=== PATIENT | male | born 1935 | race Hispanic/Latino ===

== ENCOUNTER 2017-11-26 14:46 | Inpatient (IN) | payer MEDICARE ==
[~2017-11-26] VITALS: Ht 172.7 cm; Wt 111.1 kg
[2017-11-26 16:24] VITALS: BP 135/60
[2017-11-26] MEDS ORDERED: TAMS0.4C32 PO (18:33)
[2017-11-26] MEDS ORDERED: d3 PO (18:33)
[2017-11-26] MEDS ORDERED: ISOS30TA6 PO (18:33)
[2017-11-26] MEDS ORDERED: NITR.4 SL (18:33)
[2017-11-26] MEDS ORDERED: CILO100T PO (18:33)
[2017-11-26] MEDS ORDERED: FURO40TA5 PO (18:33)
[2017-11-26] MEDS ORDERED: PRAV40TA3 PO (18:33)
[2017-11-26] MEDS ORDERED: POTA20TA12 PO (18:33)
[2017-11-26] MEDS ORDERED: METO-408 PO (18:33)
[2017-11-26 19:00] VITALS: BP 146/52
[2017-11-26] MEDS ORDERED: TICAGRELOR 90 MG TABLET PO SCH ×3 (19:00→19:30)
[2017-11-26] MEDS ORDERED: SIMETHICONE 80 MG TAB.CHEW ONE (19:45)
[2017-11-26] MEDS: LISINOPRIL 5 MG TABLET PO SCH (19:48)
[2017-11-26] MEDS: ASPIRIN 81 MG EC TAB PO SCH (19:48)
[2017-11-26] MEDS: ATORVASTATIN CALCIUM 20 MG TABLET PO SCH (19:48)
[2017-11-26] MEDS: METOPROLOL TARTRATE 25 MG TAB PO SCH (19:48)
[2017-11-26] MEDS: SIMETHICONE 80 MG TAB.CHEW PO SCH (19:48)
[2017-11-26] MEDS ORDERED: ENOXAPARIN SODIUM 100 MG/1 ML SQ SCH (21:00)
[2017-11-26 23:00] VITALS: BP 133/63
[2017-11-27] VITALS (12 sets, daily range): BP systolic 109–145; BP diastolic 47–67
[2017-11-27 04:13] LABS: BASOPHILS % (AUTO) 0.5 % (0.0-5.0); EOSINOPHILS % (AUTO) 0.6 % (0.0-8.0); HEMATOCRIT 25.7 % (42-54); LYMPHOCYTES % (AUTO) 8.7 % (21.0-51.0); MEAN CORPUSCULAR HEMOGLOBIN 32.7 pg (27.0-33.0); MEAN CORPUSCULAR HGB CONC 33.9 g/dL (32.0-36.0); MEAN CORPUSCULAR VOLUME 96.4 fL (79-99); MONOCYTES % (AUTO) 9.8 % (3.0-13.0); NEUTROPHILS % (AUTO) 80.4 % (40.0-77.0); NUCLEATED RED BLOOD CELLS 0.1 % (0.0-0.19); PLATELET COUNT (AUTO) 177 K/uL (130-400); RED BLOOD CELL COUNT(AUTO) 2.66 MIL/uL (4.50-6.20); RED CELL DISTRIBUTION WIDTH 15.4 % (11.0-15.5); WHITE BLOOD COUNT (AUTO) 9.2 K/uL (4.8-10.8)
[2017-11-27 04:50] LABS: ALBUMIN 2.5 g/dL (3.5-5.0); BILIRUBIN,TOTAL 0.8 mg/dL (0.2-1.0); CREATININE 1.8 mg/dL (0.5-1.5); POTASSIUM 3.7 mmol/L (3.5-5.1); TOTAL PROTEIN, SERUM 6.9 g/dL (6.0-8.3)
[2017-11-27] MEDS: SIMETHICONE 80 MG TAB.CHEW PO SCH ×4 (09:00→21:16)
[2017-11-27] MEDS ORDERED: BIVALIRUDIN 250 MG/VIAL IV ONE (12:02)
[2017-11-27] MEDS ORDERED: ISOVUE-370 50ML VIAL IV ONE (12:02)
[2017-11-27] MEDS ORDERED: LIDOCAINE HCL 2% 20ML ONE (12:02)
[2017-11-27] MEDS ORDERED: HEPARIN SODIUM 1000UNIT/ML 10ML VIAL ONE (12:02)
[2017-11-27] MEDS ORDERED: IOPAMIDOL-370 100 ML VIAL IV ONE (12:02)
[2017-11-27] MEDS ORDERED: SODIUM CHLORIDE 0.9% 1000ML 1,000 ML IV SCH (13:15)
[2017-11-27] MEDS: LISINOPRIL 5 MG TABLET PO SCH ×2 (14:26→21:00)
[2017-11-27] MEDS: ASPIRIN 81 MG EC TAB PO SCH (14:26)
[2017-11-27] MEDS: FUROSEMIDE 40 MG TABLET PO SCH ×2 (14:27→17:17)
[2017-11-27] MEDS: METOPROLOL TARTRATE 25 MG TAB PO SCH ×2 (14:27→21:16)
[2017-11-27] MEDS: ATORVASTATIN CALCIUM 20 MG TABLET PO SCH (21:16)
[2017-11-28] VITALS (20 sets, daily range): BP systolic 111–144; BP diastolic 42–62
[2017-11-28 04:14] LABS: HEMATOCRIT 25.5 % (42-54); MEAN CORPUSCULAR HGB CONC 33.9 g/dL (32.0-36.0); MEAN CORPUSCULAR VOLUME 97.3 fL (79-99); NUCLEATED RED BLOOD CELLS 0.1 % (0.0-0.19); PLATELET COUNT (AUTO) 182 K/uL (130-400); RED BLOOD CELL COUNT(AUTO) 2.62 MIL/uL (4.50-6.20); RED CELL DISTRIBUTION WIDTH 15.7 % (11.0-15.5); WHITE BLOOD COUNT (AUTO) 8.2 K/uL (4.8-10.8)
[2017-11-28 04:25] LABS: CREATININE 1.7 mg/dL (0.5-1.5); POTASSIUM 3.3 mmol/L (3.5-5.1)
[2017-11-28] MEDS ORDERED: PROPOFOL 10 MG/ML 20ML VIAL IV ONE (10:43)
[2017-11-28] MEDS ORDERED: MIDAZOLAM HCL 1 MG/ML 2ML VIAL ONE (10:43)
[2017-11-28] MEDS: FUROSEMIDE 40 MG TABLET PO SCH ×2 (14:20→16:44)
[2017-11-28] MEDS: METOPROLOL TARTRATE 25 MG TAB PO SCH ×2 (14:21→20:34)
[2017-11-28] MEDS: LISINOPRIL 5 MG TABLET PO SCH ×2 (14:21→21:00)
[2017-11-28] MEDS: ASPIRIN 81 MG EC TAB PO SCH (14:21)
[2017-11-28] MEDS: SIMETHICONE 80 MG TAB.CHEW PO SCH ×3 (14:27→20:34)
[2017-11-28] MEDS: PANTOPRAZOLE SODIUM 40 MG TABLET.DR PO SCH (14:28)
[2017-11-28] MEDS: ATORVASTATIN CALCIUM 20 MG TABLET PO SCH (20:34)
[2017-11-29 03:42] VITALS: BP 112/46
[2017-11-29] MEDS: PANTOPRAZOLE SODIUM 40 MG TABLET.DR PO SCH (06:37)
[2017-11-29 07:09] VITALS: BP 123/54
[2017-11-29] MEDS: SIMETHICONE 80 MG TAB.CHEW PO SCH ×3 (09:00→17:00)
[2017-11-29] MEDS: METOPROLOL TARTRATE 25 MG TAB PO SCH ×2 (09:14→21:00)
[2017-11-29] MEDS: ASPIRIN 81 MG EC TAB PO SCH (09:14)
[2017-11-29] MEDS: FUROSEMIDE 40 MG TABLET PO SCH ×2 (09:14→16:59)
[2017-11-29] MEDS: LISINOPRIL 5 MG TABLET PO SCH ×2 (09:15→21:00)
[2017-11-29 11:04] VITALS: BP 114/52
[2017-11-29 16:20] VITALS: BP 106/41
[2017-11-29 19:00] VITALS: BP 97/43
[2017-11-29] MEDS: ATORVASTATIN CALCIUM 20 MG TABLET PO SCH (19:53)
[2017-11-29 23:01] VITALS: BP 108/41
[2017-11-30] VITALS (17 sets, daily range): BP systolic 86–129; BP diastolic 38–54
[2017-11-30] MEDS: PANTOPRAZOLE SODIUM 40 MG TABLET.DR PO SCH (05:48)
[2017-11-30] MEDS: METOPROLOL TARTRATE 25 MG TAB PO SCH (09:00)
[2017-11-30] MEDS ORDERED: THROMBIN-JMI 5000 UNIT/VIAL TP ONE (13:19)
[2017-11-30] MEDS ORDERED: HEPARIN SODIUM 1000UNIT/ML 10ML VIAL ONE ×2 (13:19→16:22)
[2017-11-30] MEDS ORDERED: PAPAVERINE HCL 30 MG/ML 2ML VIAL ONE (13:26)
[2017-11-30] MEDS ORDERED: NITROGLYCERIN 50 MG/D5% WATER 1 BOT ONE (13:26)
[2017-11-30] MEDS ORDERED: OCTYL 2-CYANOACRYLATE 1 EACH TP ONE (13:26)
[2017-11-30 13:27] LABS: HEMATOCRIT 24.9 % (42-54); MEAN CORPUSCULAR HEMOGLOBIN 34.9 pg (27.0-33.0); MEAN CORPUSCULAR VOLUME 97.1 fL (79-99); PLATELET COUNT (AUTO) 180 K/uL (130-400); RED BLOOD CELL COUNT(AUTO) 2.57 MIL/uL (4.50-6.20); RED CELL DISTRIBUTION WIDTH 15.1 % (11.0-15.5); WHITE BLOOD COUNT (AUTO) 5.3 K/uL (4.8-10.8)
[2017-11-30] MEDS ORDERED: BACITRACIN 50,000 UNIT VIAL ONE (13:27)
[2017-11-30 13:38] LABS: CREATININE 1.8 mg/dL (0.5-1.5); POTASSIUM 3.4 mmol/L (3.5-5.1)
[2017-11-30 13:40] LABS: HEMOGLOBIN A1C 5.2 % (4.0-6.0)
[2017-11-30 13:41] LABS: INR 1.02 (0.85-1.15); PARTIAL THROMBOPLASTIN TIME 26.8 SEC (26.3-35.5); PROTHROMBIN TIME 10.7 SEC (9.6-11.6)
[2017-11-30 13:43] LABS: CHOLESTEROL 107 mg/dL (<200); HDL CHOLESTEROL 58 mg/dL (29-71); LDL DIRECT 44 mg/dL (0-99); TRIGLYCERIDES 68 mg/dL (30-200)
[2017-11-30] MEDS ORDERED: CLINDAMYCIN 900 MG/D5% WATER 50 ML IV ONE (13:47)
[2017-11-30] MEDS ORDERED: FENTANYL CITRATE PF 50 MCG/1 ML 20ML VIAL IJ ONE (13:49)
[2017-11-30] MEDS ORDERED: LIDOCAINE HCL 1% 10 ML VIAL ONE (13:49)
[2017-11-30] MEDS ORDERED: MIDAZOLAM HCL 1 MG/ML 2ML VIAL ONE (13:50)
[2017-11-30] MEDS ORDERED: PROPOFOL 10 MG/ML 20ML VIAL IV ONE (13:50)
[2017-11-30] MEDS ORDERED: VANCOMYCIN 1GM+NS 250ML 250 ML IV ONE (14:29)
[2017-11-30 14:31] LABS: ABG BASE EXCESS 2.6 mmol/L (-2.0-3.0); ABG HCO3 26.8 mmol/L (21.0-28.0); ABG OXYGEN SATURATION 98.8 % (95.0-99.0); ABG PCO2 40 mmHg (35-48)
[2017-11-30] MEDS ORDERED: SODIUM CHLORIDE 0.9% 500ML 500 ML IV SCH (15:34)
[2017-11-30] MEDS ORDERED: MORPHINE SULFATE 4 MG/1ML SYG IV PRN (15:45)
[2017-11-30] MEDS ORDERED: NOREPINEPHRINE 4MG/NS 250ML 250 ML IV PRN (15:45)
[2017-11-30] MEDS ORDERED: HYDROCODONE/ACETAMINOPHEN 5/325 MG TAB PO PRN (15:45)
[2017-11-30] MEDS ORDERED: INSULIN REGULAR, HUMAN 3ML 100 UNIT in SODIUM CHLORIDE 0.9% 99 ML IV SCH ×2 (15:45)
[2017-11-30] MEDS ORDERED: MAGNESIUM 2GM PREMIX 50ML 50 ML IV PRN (15:45)
[2017-11-30] MEDS ORDERED: SODIUM CHLORIDE 0.9% 250 ML IV PRN (15:45)
[2017-11-30] MEDS ORDERED: DEXTROSE 50%-WATER 50 ML DISP.SYRIN IV PRN (15:45)
[2017-11-30] MEDS ORDERED: EPINEPHRINE 2 MG in SODIUM CHLORIDE 0.9% 250 ML IV PRN (15:45)
[2017-11-30] MEDS ORDERED: NICARDIPINE HCL 100 MG in SODIUM CHLORIDE 0.9% 60 ML IV PRN (15:45)
[2017-11-30] MEDS ORDERED: NITROGLYCERIN 50 MG/D5% WATER 250 BOT IV SCH (15:45)
[2017-11-30] MEDS ORDERED: ACETAMINOPHEN 650 MG SUPPOSITORY RC PRN (15:45)
[2017-11-30] MEDS ORDERED: AMINOCAPROIC ACID 15,000 MG in SODIUM CHLORIDE 0.9% 250 ML IV SCH (15:45)
[2017-11-30] MEDS ORDERED: ALBUMIN (HUMAN) 5% 250 ML IV PRN (15:45)
[2017-11-30] MEDS ORDERED: GLUCAGON 1MG KIT 1 MG ML IM PRN (15:45)
[2017-11-30] MEDS ORDERED: SODIUM CHLORIDE 0.9% 1000ML 1,000 ML IV SCH (15:45)
[2017-11-30] MEDS ORDERED: MORPHINE SULFATE 2 MG/ML 1ML SYG IV PRN (15:45)
[2017-11-30] MEDS ORDERED: ACETAMINOPHEN 325 MG TAB PO PRN (15:45)
[2017-11-30] MEDS ORDERED: POTASSIUM PHOS 15 mMOL+NS250ML 250 ML IV PRN (15:45)
[2017-11-30] MEDS ORDERED: PROPOFOL 1000 MG/100 ML 100 ML IV PRN (15:45)
[2017-11-30] MEDS ORDERED: ONDANSETRON HCL 4 MG/2 ML VIAL IV PRN (15:45)
[2017-11-30] MEDS ORDERED: SODIUM CHLORIDE 0.9% 10 ML VIAL IVP PRN (15:45)
[2017-11-30 15:57] LABS: ABG BASE EXCESS 12.4 mmol/L (-2.0-3.0); ABG HCO3 36.5 mmol/L (21.0-28.0); ABG OXYGEN SATURATION 98.9 % (95.0-99.0); ABG PCO2 46 mmHg (35-48)
[2017-11-30] MEDS ORDERED: NEOSTIGMINE METHYLSULFATE 1MG/ML IV ONE (16:22)
[2017-11-30] MEDS ORDERED: EPINEPHRINE 1 MG/ML AMPULE ONE (16:22)
[2017-11-30] MEDS ORDERED: AMINOCAPROIC ACID 250 MG/ML 20 ML VIAL IV ONE (16:22)
[2017-11-30] MEDS ORDERED: AMIODARONE HCL 900MG/18ML IV ONE (16:22)
[2017-11-30] MEDS ORDERED: ROCURONIUM BROMIDE 10MG/1ML 5ML VL ONE (16:22)
[2017-11-30] MEDS ORDERED: MILRINONE-D5W 20 MG/100 ML 100 ML IV ONE (16:22)
[2017-11-30] MEDS ORDERED: ESMOLOL HCL 10 MG/ML 10 ML VIAL ONE (16:22)
[2017-11-30] MEDS ORDERED: PROTAMINE SULFATE 10 MG/ML 25ML VIAL IV ONE (16:22)
[2017-11-30] MEDS ORDERED: LIDOCAINE PF 2% 5ML ABBOJECT ONE ×2 (16:22→16:46)
[2017-11-30] MEDS ORDERED: NOREPINEPHRINE BITARTRATE 1 MG/1 ML ML IV ONE (16:22)
[2017-11-30] MEDS ORDERED: GLYCOPYRROLATE 0.2 MG/ML 5 ML VIAL ONE (16:22)
[2017-11-30 17:05] LABS: ABG BASE EXCESS -0.7 mmol/L (-2.0-3.0); ABG HCO3 23.8 mmol/L (21.0-28.0); ABG OXYGEN SATURATION 98.9 % (95.0-99.0); ABG PCO2 39 mmHg (35-48)
[2017-11-30 17:09] LABS: HEMATOCRIT 26.7 % (42-54); MEAN CORPUSCULAR HEMOGLOBIN 32.2 pg (27.0-33.0); MEAN CORPUSCULAR HGB CONC 34.5 g/dL (32.0-36.0); MEAN CORPUSCULAR VOLUME 93.3 fL (79-99); PLATELET COUNT (AUTO) 226 K/uL (130-400); RED BLOOD CELL COUNT(AUTO) 2.87 MIL/uL (4.50-6.20); RED CELL DISTRIBUTION WIDTH 17.5 % (11.0-15.5); WHITE BLOOD COUNT (AUTO) 26.4 K/uL (4.8-10.8)
[2017-11-30] MEDS ORDERED: SODIUM BICARB 50MEQ 50ML VIAL ONE ×3 (17:11→22:04)
[2017-11-30] MEDS ORDERED: EPINEPHRINE 8 MG in SODIUM CHLORIDE 0.9% 250 ML IV PRN (17:15)
[2017-11-30 17:19] LABS: MAGNESIUM 1.6 mg/dL (1.80-2.40); PHOSPHORUS 4.5 mg/dL (2.5-4.9)
[2017-11-30] MEDS: CALCIUM GLUCONATE 1 GM in SODIUM CHLORIDE 0.9% 50 ML IV PRN ×2 (17:20→22:15)
[2017-11-30] MEDS: POTASSIUM CHLORIDE 20MEQ/100ML 100 ML IV PRN ×2 (17:43→21:56)
[2017-11-30 17:55] LABS: CREATININE 1.5 mg/dL (0.5-1.5); POTASSIUM 3.3 mmol/L (3.5-5.1)
[2017-11-30] MEDS ORDERED: ALBUMIN (HUMAN) 5% 250 ML IV ONE (18:14)
[2017-11-30] MEDS ORDERED: PHARMACY COMMUNICATION MISC SCH (21:30)
[2017-11-30 21:44] LABS: ABG BASE EXCESS -3.5 mmol/L (-2.0-3.0); ABG HCO3 22.2 mmol/L (21.0-28.0); ABG OXYGEN SATURATION 98.4 % (95.0-99.0); ABG PCO2 43 mmHg (35-48)
[2017-11-30] MEDS: SODIUM BICARB 8.4% 50ML SYRINGE IV PRN ×3 (21:56→22:37)
[2017-11-30] MEDS: AMBU PUMP 1 EACH EACH MISC SCH (21:57)
[2017-11-30] MEDS ORDERED: NOREPINEPHRINE BITARTRATE 8 MG in SODIUM CHLORIDE 0.9% 250 ML IV SCH (22:00)
[2017-12-01] VITALS (19 sets, daily range): BP systolic 92–131; BP diastolic 40–65
[2017-12-01] MEDS: FUROSEMIDE 10 MG/ML 4ML VIAL IV SCH ×2 (00:09→23:21)
[2017-12-01] MEDS: VANCOMYCIN 1GM+NS 250ML 250 ML IV SCH ×3 (02:25→23:22)
[2017-12-01 03:13] LABS: ABG BASE EXCESS 4.3 mmol/L (-2.0-3.0); ABG HCO3 29.5 mmol/L (21.0-28.0); ABG OXYGEN SATURATION 98.8 % (95.0-99.0); ABG PCO2 46 mmHg (35-48)
[2017-12-01 03:18] LABS: HEMATOCRIT 30.2 % (42-54); MEAN CORPUSCULAR HEMOGLOBIN 30.9 pg (27.0-33.0); MEAN CORPUSCULAR HGB CONC 34.7 g/dL (32.0-36.0); MEAN CORPUSCULAR VOLUME 89.1 fL (79-99); NUCLEATED RED BLOOD CELLS 0.1 % (0.0-0.19); PLATELET COUNT (AUTO) 204 K/uL (130-400); RED CELL DISTRIBUTION WIDTH 18.4 % (11.0-15.5); WHITE BLOOD COUNT (AUTO) 20.3 K/uL (4.8-10.8)
[2017-12-01 03:28] LABS: CREATININE 1.9 mg/dL (0.5-1.5); POTASSIUM 4.1 mmol/L (3.5-5.1)
[2017-12-01 04:29] LABS: ABG BASE EXCESS 3.3 mmol/L (-2.0-3.0); ABG HCO3 28.6 mmol/L (21.0-28.0); ABG OXYGEN SATURATION 98.6 % (95.0-99.0); ABG PCO2 46 mmHg (35-48)
[2017-12-01] MEDS: AMBU PUMP 1 EACH EACH MISC SCH (07:32)
[2017-12-01] MEDS: FAMOTIDINE/PF 20 MG/2 ML VIAL IV SCH (09:55)
[2017-12-01 14:56] LABS: TROPONIN I 1.54 ng/mL (0.00-0.06)
[2017-12-01] MEDS: ASPIRIN 81 MG EC TAB PO SCH (15:03)
[2017-12-02] VITALS (8 sets, daily range): BP systolic 101–141; BP diastolic 39–69
[2017-12-02] MEDS: HYDROCODONE/ACETAMINOPHEN 5/325 MG TAB PO PRN ×2 (02:50→14:36)
[2017-12-02 04:39] LABS: HEMATOCRIT 26.3 % (42-54); MEAN CORPUSCULAR HEMOGLOBIN 30.8 pg (27.0-33.0); MEAN CORPUSCULAR HGB CONC 34.1 g/dL (32.0-36.0); MEAN CORPUSCULAR VOLUME 90.3 fL (79-99); PLATELET COUNT (AUTO) 127 K/uL (130-400); RED BLOOD CELL COUNT(AUTO) 2.92 MIL/uL (4.50-6.20); WHITE BLOOD COUNT (AUTO) 15.5 K/uL (4.8-10.8)
[2017-12-02 04:53] LABS: POTASSIUM 4.5 mmol/L (3.5-5.1)
[2017-12-02] MEDS: ASPIRIN 81 MG EC TAB PO SCH (08:41)
[2017-12-02] MEDS: FAMOTIDINE/PF 20 MG/2 ML VIAL IV SCH (08:41)
[2017-12-02] MEDS ORDERED: FUROSEMIDE 10 MG/ML 2ML VIAL IV SCH (09:00)
[2017-12-02] MEDS: AMBU PUMP 1 EACH EACH MISC SCH (14:40)
[2017-12-02] MEDS: FUROSEMIDE 20 MG TABLET PO SCH (20:19)
[2017-12-02] MEDS: ATORVASTATIN CALCIUM 20 MG TABLET PO SCH (20:19)
[2017-12-03 00:18] VITALS: BP 122/54
[2017-12-03 04:01] VITALS: BP 149/67
[2017-12-03 04:49] LABS: CREATININE 1.9 mg/dL (0.5-1.5)
[2017-12-03 07:34] VITALS: BP 101/53
[2017-12-03] MEDS: ASPIRIN 81 MG EC TAB PO SCH (09:20)
[2017-12-03] MEDS: FUROSEMIDE 20 MG TABLET PO SCH ×2 (09:20→19:58)
[2017-12-03] MEDS: FAMOTIDINE/PF 20 MG/2 ML VIAL IV SCH (09:20)
[2017-12-03 11:05] VITALS: BP 123/63
[2017-12-03] MEDS ORDERED: FUROSEMIDE 10 MG/ML 4ML VIAL IV SCH (13:45)
[2017-12-03] MEDS: AMBU PUMP 1 EACH EACH MISC SCH (14:13)
[2017-12-03 16:05] VITALS: BP 140/48
[2017-12-03 19:41] VITALS: BP 128/56
[2017-12-03] MEDS: FAMOTIDINE 20MG TAB 20 MG TAB PO SCH (19:57)
[2017-12-03] MEDS: ATORVASTATIN CALCIUM 20 MG TABLET PO SCH (19:57)
[2017-12-04] VITALS (7 sets, daily range): BP systolic 102–132; BP diastolic 42–60
[2017-12-04] MEDS: FAMOTIDINE 20MG TAB 20 MG TAB PO SCH ×2 (09:35→20:32)
[2017-12-04] MEDS: FUROSEMIDE 20 MG TABLET PO SCH ×2 (09:36→20:32)
[2017-12-04] MEDS: ASPIRIN 81 MG EC TAB PO SCH (09:36)
[2017-12-04] MEDS: HYDROCODONE/ACETAMINOPHEN 5/325 MG TAB PO PRN (13:34)
[2017-12-04] MEDS: AMBU PUMP 1 EACH EACH MISC SCH (15:45)
[2017-12-04] MEDS: ATORVASTATIN CALCIUM 20 MG TABLET PO SCH (20:32)
[2017-12-05 03:54] VITALS: BP 115/58
[2017-12-05 04:46] LABS: HEMATOCRIT 23.3 % (42-54); MEAN CORPUSCULAR HEMOGLOBIN 32.5 pg (27.0-33.0); MEAN CORPUSCULAR HGB CONC 35.6 g/dL (32.0-36.0); MEAN CORPUSCULAR VOLUME 91.4 fL (79-99); NUCLEATED RED BLOOD CELLS 0.1 % (0.0-0.19); PLATELET COUNT (AUTO) 159 K/uL (130-400); RED BLOOD CELL COUNT(AUTO) 2.54 MIL/uL (4.50-6.20); RED CELL DISTRIBUTION WIDTH 18.2 % (11.0-15.5); WHITE BLOOD COUNT (AUTO) 8.7 K/uL (4.8-10.8)
[2017-12-05 05:31] LABS: CREATININE 1.8 mg/dL (0.5-1.5); POTASSIUM 4.3 mmol/L (3.5-5.1)
[2017-12-05 07:00] VITALS: BP 124/57
[2017-12-05] MEDS: FAMOTIDINE 20MG TAB 20 MG TAB PO SCH ×2 (07:55→20:51)
[2017-12-05] MEDS: ASPIRIN 81 MG EC TAB PO SCH (07:55)
[2017-12-05] MEDS: FUROSEMIDE 20 MG TABLET PO SCH (07:55)
[2017-12-05 11:00] VITALS: BP 122/49
[2017-12-05] MEDS ORDERED: LACTULOSE 20 GM/30 ML UDCUP PO PRN (11:15)
[2017-12-05] MEDS: POLYETHYLENE GLYCOL 3350 17 GM POWD.PACK PO SCH (12:02)
[2017-12-05 16:00] VITALS: BP 120/60
[2017-12-05] MEDS ORDERED: TRAMADOL HCL 50 MG TABLET PO PRN (18:30)
[2017-12-05 19:31] VITALS: BP 118/64
[2017-12-05] MEDS: ATORVASTATIN CALCIUM 20 MG TABLET PO SCH (20:51)
[2017-12-05 23:41] VITALS: BP 120/57
[2017-12-06 03:39] VITALS: BP 103/56
[2017-12-06 03:57] LABS: BASOPHILS % (AUTO) 0.8 % (0.0-5.0); EOSINOPHILS % (AUTO) 3.7 % (0.0-8.0); HEMATOCRIT 24.1 % (42-54); MEAN CORPUSCULAR HEMOGLOBIN 30.9 pg (27.0-33.0); MEAN CORPUSCULAR VOLUME 90.7 fL (79-99); NEUTROPHILS % (AUTO) 69.5 % (40.0-77.0); NUCLEATED RED BLOOD CELLS 0.1 % (0.0-0.19); PLATELET COUNT (AUTO) 172 K/uL (130-400); RED BLOOD CELL COUNT(AUTO) 2.66 MIL/uL (4.50-6.20); RED CELL DISTRIBUTION WIDTH 18.1 % (11.0-15.5); WHITE BLOOD COUNT (AUTO) 9.2 K/uL (4.8-10.8)
[2017-12-06 04:03] LABS: CREATININE 1.7 mg/dL (0.5-1.5); POTASSIUM 3.3 mmol/L (3.5-5.1)
[2017-12-06 07:00] VITALS: BP 116/55
[2017-12-06] MEDS: FAMOTIDINE 20MG TAB 20 MG TAB PO SCH ×2 (08:18→21:31)
[2017-12-06] MEDS: ASPIRIN 81 MG EC TAB PO SCH (08:18)
[2017-12-06] MEDS: POLYETHYLENE GLYCOL 3350 17 GM POWD.PACK PO SCH (08:18)
[2017-12-06] MEDS: FUROSEMIDE 20 MG TABLET PO SCH (08:18)
[2017-12-06 11:00] VITALS: BP 117/56
[2017-12-06] MEDS ORDERED: POTASSIUM CHLORIDE 10% ELIXIR 20 MEQ/15 ML UDCUP PO PRN (11:45)
[2017-12-06] MEDS ORDERED: POTASSIUM CHLORIDE 20 MEQ ERTAB PO PRN (11:45)
[2017-12-06] MEDS ORDERED: LIDOCAINE HCL-MPF 1% 2ML VIAL IVP PRN (11:45)
[2017-12-06] MEDS ORDERED: CALCIUM GLUCONATE 1 GM in DEXTROSE 5%-WATER 50 ML IV SCH (11:45)
[2017-12-06] MEDS ORDERED: POTASSIUM CHLORIDE 20MEQ/100ML 100 ML IV PRN (11:45)
[2017-12-06] MEDS: POTASSIUM CHLORIDE 20 MEQ ERTAB PO SCH (14:03)
[2017-12-06 16:00] VITALS: BP 119/47
[2017-12-06 19:35] VITALS: BP 117/59
[2017-12-06] MEDS: ATORVASTATIN CALCIUM 20 MG TABLET PO SCH (21:30)
[2017-12-06 23:29] VITALS: BP 99/49
[2017-12-07] VITALS (10 sets, daily range): BP systolic 105–144; BP diastolic 48–62
[2017-12-07 04:32] LABS: CREATININE 1.5 mg/dL (0.5-1.5); POTASSIUM 4.2 mmol/L (3.5-5.1)
[2017-12-07] MEDS ORDERED: VANCOMYCIN 1GM+NS 250ML 250 ML IV SCH (07:15)
[2017-12-07] MEDS ORDERED: MIDAZOLAM HCL 1 MG/ML 2ML VIAL ONE ×2 (11:37→12:24)
[2017-12-07] MEDS ORDERED: VANCOMYCIN 1GM+NS 250ML 500 ML IV ONE (11:37)
[2017-12-07] MEDS ORDERED: LIDOCAINE HCL 1% MDV 50ML VIAL ONE (11:37)
[2017-12-07] MEDS ORDERED: MEPERIDINE-PF 25 MG/ML SYG ONE ×2 (11:37→12:23)
[2017-12-07] MEDS ORDERED: BUPIVACAINE/PF 0.25% 30ML VIAL IJ ONE (11:56)
[2017-12-07] MEDS ORDERED: ISOVUE-300 100 ML VIAL IV ONE (12:16)
[2017-12-07] MEDS ORDERED: ACETAMINOPHEN 325 MG TAB PO PRN (14:00)
[2017-12-07] MEDS ORDERED: ACETAMINOPHEN-CODEINE 300/30MG TAB PO PRN ×2 (14:00)
[2017-12-07] MEDS: FUROSEMIDE 20 MG TABLET PO SCH (15:17)
[2017-12-07] MEDS: POLYETHYLENE GLYCOL 3350 17 GM POWD.PACK PO SCH (15:18)
[2017-12-07] MEDS: ASPIRIN 81 MG EC TAB PO SCH (15:18)
[2017-12-07] MEDS: POTASSIUM CHLORIDE 20 MEQ ERTAB PO SCH (15:18)
[2017-12-07] MEDS: FAMOTIDINE 20MG TAB 20 MG TAB PO SCH ×2 (15:19→21:34)
[2017-12-07] MEDS ORDERED: CLOPIDOGREL BISULFATE 75 MG TAB PO SCH (15:30)
[2017-12-07] MEDS: ATORVASTATIN CALCIUM 20 MG TABLET PO SCH (21:34)
[2017-12-07] MEDS: METOPROLOL TARTRATE 25 MG TAB PO SCH (21:34)
[2017-12-08 03:19] VITALS: BP 142/55
[2017-12-08 04:07] LABS: BASOPHILS % (AUTO) 0.9 % (0.0-5.0); HEMATOCRIT 24.1 % (42-54); MEAN CORPUSCULAR HGB CONC 33.7 g/dL (32.0-36.0); MEAN CORPUSCULAR VOLUME 92.1 fL (79-99); MONOCYTES % (AUTO) 9.2 % (3.0-13.0); NEUTROPHILS % (AUTO) 77.9 % (40.0-77.0); NUCLEATED RED BLOOD CELLS 0.1 % (0.0-0.19); PLATELET COUNT (AUTO) 195 K/uL (130-400); RED BLOOD CELL COUNT(AUTO) 2.62 MIL/uL (4.50-6.20); RED CELL DISTRIBUTION WIDTH 18.3 % (11.0-15.5)
[2017-12-08 04:11] LABS: CREATININE 1.6 mg/dL (0.5-1.5); POTASSIUM 4.5 mmol/L (3.5-5.1)
[2017-12-08 07:27] VITALS: BP 109/56
[2017-12-08] MEDS: ASPIRIN 81 MG EC TAB PO SCH (08:58)
[2017-12-08] MEDS: FUROSEMIDE 20 MG TABLET PO SCH (08:59)
[2017-12-08] MEDS: FAMOTIDINE 20MG TAB 20 MG TAB PO SCH (08:59)
[2017-12-08] MEDS: METOPROLOL TARTRATE 25 MG TAB PO SCH (08:59)
[2017-12-08] MEDS: POLYETHYLENE GLYCOL 3350 17 GM POWD.PACK PO SCH (09:00)
[2017-12-08] MEDS: POTASSIUM CHLORIDE 20 MEQ ERTAB PO SCH (09:00)
[2017-12-08] MEDS ORDERED: CLOPIDOGREL BISULFATE 75 MG TAB PO SCH (09:00)
[2017-12-08] MEDS ORDERED: LISINOPRIL 2.5 MG TABLET PO SCH (09:00)
[2017-12-08 11:20] VITALS: BP 123/58
[2017-12-08 16:15] VITALS: BP 100/66
[2017-12-08] MEDS ORDERED: FAMO20TA8 PO (16:28)
[2017-12-08] MEDS ORDERED: TRAM50TA4 PO (16:28)
[2017-12-08] MEDS ORDERED: CLOP75TA14 PO (16:28)
[2017-12-08] MEDS ORDERED: LACT PO (16:28)
[2017-12-08] MEDS ORDERED: ATOR20TA65 PO (16:28)
[2017-12-08] MEDS ORDERED: TYL3B PO (16:28)
[2017-12-08] MEDS ORDERED: METO25 PO (16:28)
[2017-12-08] MEDS ORDERED: FURO20TA6 PO (16:28)
[2017-12-08] MEDS ORDERED: MIRAUD PO (16:28)
[2017-12-08] MEDS ORDERED: ACET-2247 PO (16:28)
[2017-12-08] MEDS ORDERED: LISI2.5T2 PO (16:28)
[2017-12-08] MEDS ORDERED: AEC81 PO (16:28)
== END 2017-12-08 18:35 | DRG 233 ==
LOC: 2DH 16:14 → 2CV 11-30 15:14 → 2CH 12-01 11:45 → 2DH 12-02 02:59
PROVIDERS: ADMIT Family Medicine; ATTEND Family Medicine
PROC: B2111ZZ Fluoroscopy of Multiple Coronary Arteries using Low Osmolar Contrast (ICD-10-PCS; principal; 2017-11-27)
PROC: B245ZZZ Ultrasonography of Left Heart (ICD-10-PCS; 2017-11-27)
PROC: 0DJ08ZZ Inspection of Upper Intestinal Tract, Via Natural or Artificial Opening Endoscopic (ICD-10-PCS; 2017-11-28)
PROC: 021109W Bypass Coronary Artery, Two Arteries from Aorta with Autologous Venous Tissue, Open Approach (ICD-10-PCS; 2017-11-30)
PROC: B2131ZZ Fluoroscopy of Multiple Coronary Artery Bypass Grafts using Low Osmolar Contrast (ICD-10-PCS; 2017-11-30)
PROC: 06BQ3ZZ Excision of Left Saphenous Vein, Percutaneous Approach (ICD-10-PCS; 2017-11-30)
PROC: 30233R1 Transfusion of Nonautologous Platelets into Peripheral Vein, Percutaneous Approach (ICD-10-PCS; 2017-11-30)
PROC: 30233N1 Transfusion of Nonautologous Red Blood Cells into Peripheral Vein, Percutaneous Approach (ICD-10-PCS; 2017-11-30)
PROC: 4A023N7 Measurement of Cardiac Sampling and Pressure, Left Heart, Percutaneous Approach (ICD-10-PCS; 2017-11-30 14:15)
PROC: 02100Z9 Bypass Coronary Artery, One Artery from Left Internal Mammary, Open Approach (ICD-10-PCS; 2017-11-30 14:15)
PROC: 0JH606Z Insertion of Pacemaker, Dual Chamber into Chest Subcutaneous Tissue and Fascia, Open Approach (ICD-10-PCS; 2017-12-07)
PROC: 02HL3JZ Insertion of Pacemaker Lead into Left Ventricle, Percutaneous Approach (ICD-10-PCS; 2017-12-07)
PROC: 02HK3JZ Insertion of Pacemaker Lead into Right Ventricle, Percutaneous Approach (ICD-10-PCS; 2017-12-07)
DX: I25.10 Atherosclerotic heart disease of native coronary artery without angina pectoris (principal); I21.4 Non-ST elevation (NSTEMI) myocardial infarction; N17.9 Acute kidney failure, unspecified; E11.22 Type 2 diabetes mellitus with diabetic chronic kidney disease; I45.3 Trifascicular block; E44.1 Mild protein-calorie malnutrition; E87.1 Hypo-osmolality and hyponatremia; D62 Acute posthemorrhagic anemia; I45.2 Bifascicular block; E66.01 Morbid (severe) obesity due to excess calories; E78.5 Hyperlipidemia, unspecified; I12.9 Hypertensive chronic kidney disease with stage 1 through stage 4 chronic kidney disease, or unspecified chronic kidney disease; N18.9 Chronic kidney disease, unspecified; Z88.0 Allergy status to penicillin; Z68.37 Body mass index [BMI] 37.0-37.9, adult; I25.5 Ischemic cardiomyopathy; I34.0 Nonrheumatic mitral (valve) insufficiency; I35.8 Other nonrheumatic aortic valve disorders; I44.0 Atrioventricular block, first degree; I77.1 Stricture of artery; N40.0 Benign prostatic hyperplasia without lower urinary tract symptoms; Z79.82 Long term (current) use of aspirin; Z79.899 Other long term (current) drug therapy; Z95.1 Presence of aortocoronary bypass graft; Z95.0 Presence of cardiac pacemaker; Z87.891 Personal history of nicotine dependence; Z80.9 Family history of malignant neoplasm, unspecified
CPT/HCPCS: 33208; 33225; 36415; 36430; 36600; 71045; 71046; 80048; 80053; 80061; 82270; 82330; 82435; 82550; 82553; 82803; 82947; 82948; 83036; 83605; 83735; 83874; 84100; 84132; 84295; 84484; 85018; 85025; 85027; 85347; 85610; 85730; 86850; 86900; 86901; 86922; 93005; 93308; 93458; 94002; 94003; 94150; 97039; 99152; 99153; A7048; C1769; C1894; C9113; J0171; J0282; J0583; J0610; J1644; J1815; J1940; J2001; J2175; J2250; J2260; J2440; J2704; J2710; J2720; J3010; J3370; J3475; J3480; J3490; J7030; J7040; J7060; P9016; P9034; P9045; Q9967

== ENCOUNTER 2017-12-23 17:03 | Inpatient (IN) | payer MEDICARE ==
[~2017-12-23] VITALS: Ht 172.7 cm; Wt 109.1 kg
[~2017-12-23 17:03] MED LIST: ACET-2247 PO; AEC81 PO; ATOR20TA65 PO; CLOP75TA14 PO; FAMO20TA8 PO; FURO20TA6 PO; LACT PO; LISI2.5T2 PO; METO25 PO; MIRAUD PO; POTA20TA12 PO; TAMS0.4C32 PO; TRAM50TA4 PO; TYL3B PO; d3 PO
[2017-12-23 17:48] LABS: BASOPHILS % (AUTO) 0.6 % (0.0-5.0); EOSINOPHILS % (AUTO) 0.2 % (0.0-8.0); LYMPHOCYTES % (AUTO) 5.7 % (21.0-51.0); MEAN CORPUSCULAR HGB CONC 33.9 g/dL (32.0-36.0); MEAN CORPUSCULAR VOLUME 97.2 fL (79-99); NEUTROPHILS % (AUTO) 82.5 % (40.0-77.0); PLATELET COUNT (AUTO) 218 K/uL (130-400); RED BLOOD CELL COUNT(AUTO) 1.51 MIL/uL (4.50-6.20); RED CELL DISTRIBUTION WIDTH 22.5 % (11.0-15.5); WHITE BLOOD COUNT (AUTO) 6.3 K/uL (4.8-10.8)
[2017-12-23 17:55] LABS: HEMATOCRIT 14.7 % (42-54)
[2017-12-23 17:59] LABS: INR 1.07 (0.85-1.15); PARTIAL THROMBOPLASTIN TIME 22.8 SEC (26.3-35.5); PROTHROMBIN TIME 11.2 SEC (9.6-11.6)
[2017-12-23 18:00] LABS: CREATININE 1.6 mg/dL (0.5-1.5); POTASSIUM 4.5 mmol/L (3.5-5.1)
[2017-12-23 18:13] LABS: ALBUMIN 2.1 g/dL (3.5-5.0); BILIRUBIN,TOTAL 0.6 mg/dL (0.2-1.0); CREATINE KINASE MB 2.5 ng/mL (0.5-3.6); TOTAL PROTEIN, SERUM 6.4 g/dL (6.0-8.3)
[2017-12-23 19:34] LABS: APPEARANCE,URINE Clear (CLEAR); BILIRUBIN,URINE Negative (NEGATIVE); COLOR,URINE Yellow (YELLOW); GLUCOSE, URINE (UA) Negative (NEGATIVE); KETONES,URINE Negative (NEGATIVE); LEUKOCYTE ESTERASE ,URINE Negative (NEGATIVE); NITRATE,URINE Negative (NEGATIVE); OCCULT BLOOD,URINE Negative (NEGATIVE); PROTEIN,URINE Negative (NEGATIVE); UROBILINOGEN,URINE 0.2 mg/dL (0.2-1.0)
[2017-12-23 20:40] VITALS: BP 113/44
[2017-12-23 23:11] VITALS: BP 113/46
[2017-12-24] MEDS ORDERED: SODIUM CHLORIDE 0.9% 500ML 500 ML IV ONE (00:30)
[2017-12-24 03:15] VITALS: BP 118/76
[2017-12-24 07:00] VITALS: BP 119/51
[2017-12-24 07:08] LABS: MEAN CORPUSCULAR HEMOGLOBIN 30.3 pg (27.0-33.0); MEAN CORPUSCULAR HGB CONC 32.9 g/dL (32.0-36.0); MEAN CORPUSCULAR VOLUME 92.1 fL (79-99); NUCLEATED RED BLOOD CELLS 1.1 % (0.0-0.19); PLATELET COUNT (AUTO) 202 K/uL (130-400); RED CELL DISTRIBUTION WIDTH 19.4 % (11.0-15.5); WHITE BLOOD COUNT (AUTO) 5.1 K/uL (4.8-10.8)
[2017-12-24 07:11] LABS: HEMATOCRIT 20.2 % (42-54)
[2017-12-24 07:20] LABS: CREATININE 1.4 mg/dL (0.5-1.5); POTASSIUM 4.4 mmol/L (3.5-5.1)
[2017-12-24 08:27] LABS: HEMATOCRIT 21.1 % (42-54)
[2017-12-24] MEDS ORDERED: TRAMADOL HCL 50 MG TABLET PO PRN (10:45)
[2017-12-24] MEDS ORDERED: ACETAMINOPHEN 325 MG TAB PO PRN (10:45)
[2017-12-24 12:17] LABS: HEMATOCRIT 20.4 % (42-54)
[2017-12-24] MEDS: LISINOPRIL 2.5 MG TABLET PO SCH (12:36)
[2017-12-24] MEDS: FUROSEMIDE 40 MG TABLET PO SCH (12:37)
[2017-12-24 12:40] VITALS: BP 123/50
[2017-12-24 18:30] VITALS: BP 123/50
[2017-12-24 19:40] VITALS: BP 125/49
[2017-12-24] MEDS ORDERED: GLUCAGON 1MG KIT 1 MG ML IM PRN (20:00)
[2017-12-24] MEDS ORDERED: DEXTROSE 50%-WATER 50 ML DISP.SYRIN IV PRN (20:00)
[2017-12-24] MEDS: TAMSULOSIN HCL 0.4 MG CAP.ER.24H PO SCH (20:37)
[2017-12-24] MEDS: FAMOTIDINE 20MG TAB 20 MG TAB PO SCH (20:37)
[2017-12-24] MEDS: ATORVASTATIN CALCIUM 20 MG TABLET PO SCH (20:37)
[2017-12-24] MEDS: CARVEDILOL 6.25 MG TABLET PO SCH (20:38)
[2017-12-24] MEDS: INSULIN HUMULIN R 100 UNIT/ML 3ML SQ SCH (20:52)
[2017-12-24 22:07] LABS: HEMATOCRIT 22.6 % (42-54)
[2017-12-25 00:30] VITALS: BP 121/50
[2017-12-25 03:44] LABS: HEMATOCRIT 21.4 % (42-54); MEAN CORPUSCULAR HEMOGLOBIN 31.8 pg (27.0-33.0); MEAN CORPUSCULAR HGB CONC 34.9 g/dL (32.0-36.0); MEAN CORPUSCULAR VOLUME 91.1 fL (79-99); NUCLEATED RED BLOOD CELLS 1.5 % (0.0-0.19); PLATELET COUNT (AUTO) 162 K/uL (130-400); RED BLOOD CELL COUNT(AUTO) 2.35 MIL/uL (4.50-6.20); RED CELL DISTRIBUTION WIDTH 17.8 % (11.0-15.5); WHITE BLOOD COUNT (AUTO) 5.5 K/uL (4.8-10.8)
[2017-12-25 04:03] VITALS: BP 105/42
[2017-12-25] MEDS: INSULIN HUMULIN R 100 UNIT/ML 3ML SQ SCH ×4 (07:04→20:06)
[2017-12-25 07:30] VITALS: BP 126/44
[2017-12-25] MEDS: FUROSEMIDE 40 MG TABLET PO SCH (08:49)
[2017-12-25] MEDS: FAMOTIDINE 20MG TAB 20 MG TAB PO SCH ×2 (08:49→20:05)
[2017-12-25] MEDS: LISINOPRIL 2.5 MG TABLET PO SCH (08:49)
[2017-12-25] MEDS: CARVEDILOL 6.25 MG TABLET PO SCH ×2 (08:50→20:06)
[2017-12-25] MEDS: POTASSIUM CHLORIDE 20 MEQ ERTAB PO SCH (08:52)
[2017-12-25] MEDS: POLYETHYLENE GLYCOL 3350 17 GM POWD.PACK PO SCH (08:53)
[2017-12-25] MEDS: CHOLECALCIFEROL PO SCH (08:53)
[2017-12-25 10:21] LABS: CREATININE 1.3 mg/dL (0.5-1.5)
[2017-12-25 12:00] VITALS: BP 124/51
[2017-12-25 16:00] VITALS: BP 127/61
[2017-12-25] MEDS ORDERED: PEG 3350/NA SULF,BICARB,CL/KCL 4000 ML SOLN PO ONE (18:30)
[2017-12-25 19:00] VITALS: BP 139/61
[2017-12-25] MEDS: ATORVASTATIN CALCIUM 20 MG TABLET PO SCH (20:05)
[2017-12-25] MEDS: TAMSULOSIN HCL 0.4 MG CAP.ER.24H PO SCH (20:06)
[2017-12-26] VITALS (20 sets, daily range): BP systolic 105–142; BP diastolic 42–80
[2017-12-26 04:13] LABS: CREATININE 1.1 mg/dL (0.5-1.5)
[2017-12-26] MEDS: INSULIN HUMULIN R 100 UNIT/ML 3ML SQ SCH ×4 (06:40→21:00)
[2017-12-26] MEDS ORDERED: PROPOFOL 10 MG/ML 20ML VIAL IV ONE (07:57)
[2017-12-26] MEDS: FUROSEMIDE 40 MG TABLET PO SCH (09:00)
[2017-12-26] MEDS: CHOLECALCIFEROL PO SCH (09:00)
[2017-12-26] MEDS: POLYETHYLENE GLYCOL 3350 17 GM POWD.PACK PO SCH (09:00)
[2017-12-26] MEDS: LISINOPRIL 2.5 MG TABLET PO SCH (09:00)
[2017-12-26] MEDS: CARVEDILOL 6.25 MG TABLET PO SCH ×2 (09:00→21:35)
[2017-12-26] MEDS: FAMOTIDINE 20MG TAB 20 MG TAB PO SCH ×2 (10:28→21:35)
[2017-12-26] MEDS: POTASSIUM CHLORIDE 20 MEQ ERTAB PO SCH (10:29)
[2017-12-26] MEDS: TAMSULOSIN HCL 0.4 MG CAP.ER.24H PO SCH (21:35)
[2017-12-26] MEDS: ATORVASTATIN CALCIUM 20 MG TABLET PO SCH (21:35)
[2017-12-27] VITALS: BP 127/56
[2017-12-27 04:00] VITALS: BP 128/47
[2017-12-27 05:53] LABS: HEMATOCRIT 22.4 % (42-54); MEAN CORPUSCULAR HEMOGLOBIN 32.5 pg (27.0-33.0); MEAN CORPUSCULAR HGB CONC 34.3 g/dL (32.0-36.0); MEAN CORPUSCULAR VOLUME 94.5 fL (79-99); NUCLEATED RED BLOOD CELLS 0.7 % (0.0-0.19); PLATELET COUNT (AUTO) 169 K/uL (130-400); RED BLOOD CELL COUNT(AUTO) 2.37 MIL/uL (4.50-6.20); RED CELL DISTRIBUTION WIDTH 18.4 % (11.0-15.5); WHITE BLOOD COUNT (AUTO) 4.3 K/uL (4.8-10.8)
[2017-12-27] MEDS: INSULIN HUMULIN R 100 UNIT/ML 3ML SQ SCH ×4 (07:30→21:00)
[2017-12-27 08:00] VITALS: BP 121/52
[2017-12-27] MEDS: CHOLECALCIFEROL PO SCH (09:00)
[2017-12-27] MEDS ORDERED: COMPOUND IV MISC 1 EACH IVSOLN MISC PRN (09:00)
[2017-12-27] MEDS: POLYETHYLENE GLYCOL 3350 17 GM POWD.PACK PO SCH (10:55)
[2017-12-27] MEDS: FAMOTIDINE 20MG TAB 20 MG TAB PO SCH ×2 (10:55→22:02)
[2017-12-27] MEDS: POTASSIUM CHLORIDE 20 MEQ ERTAB PO SCH (10:56)
[2017-12-27] MEDS: CARVEDILOL 6.25 MG TABLET PO SCH ×2 (10:56→22:02)
[2017-12-27] MEDS: LISINOPRIL 2.5 MG TABLET PO SCH (10:56)
[2017-12-27] MEDS: FUROSEMIDE 40 MG TABLET PO SCH (10:56)
[2017-12-27 11:26] VITALS: BP 136/67
[2017-12-27 16:00] VITALS: BP 127/54
[2017-12-27 19:00] VITALS: BP 114/77
[2017-12-27] MEDS: TAMSULOSIN HCL 0.4 MG CAP.ER.24H PO SCH (22:01)
[2017-12-27] MEDS: ATORVASTATIN CALCIUM 20 MG TABLET PO SCH (22:01)
[2017-12-28] VITALS (21 sets, daily range): BP systolic 104–144; BP diastolic 46–74
[2017-12-28] MEDS: INSULIN HUMULIN R 100 UNIT/ML 3ML SQ SCH ×4 (06:33→20:23)
[2017-12-28 06:57] LABS: HEMATOCRIT 22.6 % (42-54); MEAN CORPUSCULAR HEMOGLOBIN 30.2 pg (27.0-33.0); MEAN CORPUSCULAR HGB CONC 32.8 g/dL (32.0-36.0); MEAN CORPUSCULAR VOLUME 92.1 fL (79-99); NUCLEATED RED BLOOD CELLS 0.2 % (0.0-0.19); PLATELET COUNT (AUTO) 161 K/uL (130-400); RED BLOOD CELL COUNT(AUTO) 2.46 MIL/uL (4.50-6.20); RED CELL DISTRIBUTION WIDTH 18.5 % (11.0-15.5); WHITE BLOOD COUNT (AUTO) 2.8 K/uL (4.8-10.8)
[2017-12-28 07:59] LABS: BASOPHILS % (MANUAL) 3 % (0-2); LYMPHOCYTES % (MANUAL) 14 % (22-44); MAN.DIFF COMMENT-IMPRESSION MANUAL DIFFERENTIAL; MONOCYTES % (MANUAL) 14 % (2-9); PLATELET MORPHOLOGY COMMENT ADEQUATE; SEGMENTED NEUTROPHILS % 69 % (40-70)
[2017-12-28 08:26] LABS: B-TYPE NATRIURETIC PEPTIDE 311 pg/mL (0-100)
[2017-12-28 08:45] LABS: CREATININE 0.9 mg/dL (0.5-1.5); POTASSIUM 4.2 mmol/L (3.5-5.1)
[2017-12-28] MEDS: CHOLECALCIFEROL PO SCH (09:00)
[2017-12-28] MEDS: LISINOPRIL 2.5 MG TABLET PO SCH (09:00)
[2017-12-28] MEDS: POLYETHYLENE GLYCOL 3350 17 GM POWD.PACK PO SCH (09:00)
[2017-12-28] MEDS: POTASSIUM CHLORIDE 20 MEQ ERTAB PO SCH (09:00)
[2017-12-28] MEDS: CARVEDILOL 6.25 MG TABLET PO SCH ×2 (09:00→20:23)
[2017-12-28] MEDS ORDERED: PROPOFOL 10 MG/ML 20ML VIAL IV ONE (12:17)
[2017-12-28] MEDS ORDERED: GLYCOPYRROLATE 0.2 MG/ML 5 ML VIAL ONE (12:17)
[2017-12-28] MEDS ORDERED: LIDOCAINE HCL 2% 20ML ONE (12:18)
[2017-12-28] MEDS ORDERED: PHENYLEPHRINE HCL 10 MG/ML 1ML VIAL IV ONE (12:28)
[2017-12-28] MEDS ORDERED: EPHEDRINE SULFATE 50 MG/ML AMPULE ONE (12:37)
[2017-12-28] MEDS: FAMOTIDINE 20MG TAB 20 MG TAB PO SCH ×2 (12:56→20:21)
[2017-12-28] MEDS: IRON SUCROSE COMPLEX 100 MG in SODIUM CHLORIDE 0.9% 50 ML IV SCH ×2 (13:54→14:05)
[2017-12-28] MEDS: FUROSEMIDE 40 MG TABLET PO SCH (14:01)
[2017-12-28] MEDS: ATORVASTATIN CALCIUM 20 MG TABLET PO SCH (20:21)
[2017-12-28] MEDS: TAMSULOSIN HCL 0.4 MG CAP.ER.24H PO SCH (20:21)
[2017-12-29] VITALS (10 sets, daily range): BP systolic 88–111; BP diastolic 41–51
[2017-12-29 03:44] LABS: HEMATOCRIT 21.6 % (42-54); MEAN CORPUSCULAR HEMOGLOBIN 31.4 pg (27.0-33.0); MEAN CORPUSCULAR HGB CONC 34.2 g/dL (32.0-36.0); MEAN CORPUSCULAR VOLUME 91.5 fL (79-99); NUCLEATED RED BLOOD CELLS 0.3 % (0.0-0.19); PLATELET COUNT (AUTO) 154 K/uL (130-400); RED BLOOD CELL COUNT(AUTO) 2.36 MIL/uL (4.50-6.20); RED CELL DISTRIBUTION WIDTH 18.5 % (11.0-15.5); WHITE BLOOD COUNT (AUTO) 3.9 K/uL (4.8-10.8)
[2017-12-29 04:37] LABS: BAND NEUTROPHILS % (MANUAL) 2 % (0-2); BASOPHILS % (MANUAL) 1 % (0-2); EOSINOPHILS % (MANUAL) 1 % (1-6); LYMPHOCYTES % (MANUAL) 10 % (22-44); MAN.DIFF COMMENT-IMPRESSION MANUAL DIFFERENTIAL; MONOCYTES % (MANUAL) 12 % (2-9); PLATELET MORPHOLOGY COMMENT ADEQUATE; REACTIVE LYMPHOCYTES 1 % (0-0); SEGMENTED NEUTROPHILS % 73 % (40-70)
[2017-12-29] MEDS: INSULIN HUMULIN R 100 UNIT/ML 3ML SQ SCH ×3 (07:30→16:30)
[2017-12-29] MEDS: POLYETHYLENE GLYCOL 3350 17 GM POWD.PACK PO SCH (09:00)
[2017-12-29] MEDS: CHOLECALCIFEROL PO SCH (09:00)
[2017-12-29] MEDS ORDERED: ASPIRIN 81 MG EC TAB PO SCH (09:00)
[2017-12-29] MEDS ORDERED: FURO40TA7 PO (09:23)
[2017-12-29] MEDS ORDERED: FE F1CAP9 PO (09:23)
[2017-12-29] MEDS ORDERED: CARV6.2579 PO (09:23)
[2017-12-29] MEDS: IRON SUCROSE COMPLEX 100 MG in SODIUM CHLORIDE 0.9% 50 ML IV SCH (10:21)
[2017-12-29] MEDS: FAMOTIDINE 20MG TAB 20 MG TAB PO SCH (10:22)
[2017-12-29] MEDS: POTASSIUM CHLORIDE 20 MEQ ERTAB PO SCH (10:22)
[2017-12-29] MEDS: FUROSEMIDE 40 MG TABLET PO SCH (10:23)
[2017-12-29] MEDS: LISINOPRIL 2.5 MG TABLET PO SCH (10:23)
[2017-12-29] MEDS: CARVEDILOL 6.25 MG TABLET PO SCH (10:24)
[2017-12-29] MEDS ORDERED: FUROSEMIDE 10 MG/ML 2ML VIAL IV ONE (13:45)
== END 2017-12-29 19:41 | disposition home or self-care (01) | DRG 377 ==
LOC: EDH 17:03 → EDHIP 19:00 → 3AH 20:17
PROVIDERS: ADMIT Family Medicine; ATTEND Family Medicine
PROC: 0DJD8ZZ Inspection of Lower Intestinal Tract, Via Natural or Artificial Opening Endoscopic (ICD-10-PCS; principal; 2017-12-26)
PROC: 30233N1 Transfusion of Nonautologous Red Blood Cells into Peripheral Vein, Percutaneous Approach (ICD-10-PCS; 2017-12-26)
PROC: 0DJ08ZZ Inspection of Upper Intestinal Tract, Via Natural or Artificial Opening Endoscopic (ICD-10-PCS; 2017-12-28)
PROC: 0W9B3ZZ Drainage of Left Pleural Cavity, Percutaneous Approach (ICD-10-PCS; 2017-12-29)
DX: K92.2 Gastrointestinal hemorrhage, unspecified (principal); I50.23 Acute on chronic systolic (congestive) heart failure; N17.9 Acute kidney failure, unspecified; I50.22 Chronic systolic (congestive) heart failure; I13.0 Hypertensive heart and chronic kidney disease with heart failure and stage 1 through stage 4 chronic kidney disease, or unspecified chronic kidney disease; I45.2 Bifascicular block; E11.22 Type 2 diabetes mellitus with diabetic chronic kidney disease; D64.9 Anemia, unspecified; E11.29 Type 2 diabetes mellitus with other diabetic kidney complication; I25.5 Ischemic cardiomyopathy; I25.10 Atherosclerotic heart disease of native coronary artery without angina pectoris; E66.9 Obesity, unspecified; E78.5 Hyperlipidemia, unspecified; I35.8 Other nonrheumatic aortic valve disorders; I44.0 Atrioventricular block, first degree; I45.10 Unspecified right bundle-branch block; K44.9 Diaphragmatic hernia without obstruction or gangrene; K64.8 Other hemorrhoids; N28.9 Disorder of kidney and ureter, unspecified; N40.0 Benign prostatic hyperplasia without lower urinary tract symptoms; Z95.0 Presence of cardiac pacemaker; Z95.1 Presence of aortocoronary bypass graft; Z88.0 Allergy status to penicillin; I25.2 Old myocardial infarction; Z79.01 Long term (current) use of anticoagulants; Z79.02 Long term (current) use of antithrombotics/antiplatelets; Z79.82 Long term (current) use of aspirin; Z79.899 Other long term (current) drug therapy; Z68.36 Body mass index [BMI] 36.0-36.9, adult; N18.2 Chronic kidney disease, stage 2 (mild)
CPT/HCPCS: 32555; 36415; 36430; 71045; 80048; 80053; 81003; 82550; 82553; 82948; 83880; 84484; 85007; 85025; 85027; 85610; 85730; 86850; 86900; 86901; 86922; 88313; 93005; 93306; 99291; J1756; J1940; J2370; J2704; J3490; J7040; P9016